=== PATIENT | female | born 1955 | race African-American/Black ===

== ENCOUNTER 2017-04-25 14:04 | Emergency (ER) | payer MEDICAID ==
[~2017-04-25] VITALS: Ht 167.6 cm; Wt 89.0 kg
[~2017-04-25 14:04] MED LIST: ALLO300T2 PO; AMLO5TAB4 PO; ASPI-1159 PO; CHOL100044 PO; INDO-53 PO; METF10002 PO; SIMV20TA6 PO
[2017-04-25] MEDS ORDERED: SODIUM CHLORIDE 0.9% 1,000 ML IV ONE ×2 (14:26)
[2017-04-25 14:56] LABS: BG BASE EXCESS -2.3 mmol/L (-2.0-2.0); BG CARBOXYHEMOGLOBIN 4.1 % (0.5-1.5); BG DEOXYHEMOGLOBIN 7.2 % (0.0-5.0); BG FRACTION INSPIRED OXYGEN 21; BG HCO3 ACT 21.4 mmol/L (22.0-26.0); BG METHEMOGLOBIN 0.2 % (0.0-1.5); BG OXYGEN SATURATION 92.5 % (92.0-98.5); BG OXYHEMOGLOBIN 88.5 % (94.0-97.0); BG PH 7.417 (7.350-7.450); BG PO2 61.3 mmHg (75.0-100.0); BG SAMPLE SITE LEFT RADIAL; BG TOTAL HEMOGLOBIN 14.1 g/dL (12.0-18.0); BG VENT MODE ROOM AIR
[2017-04-25 15:00] LABS: BASOPHILS % 0.4 % (0.0-2.0); EOSINOPHILS % 1.4 % (0.0-5.0); HEMATOCRIT. 39.4 % (36.0-48.0); HEMOGLOBIN. 13.3 g/dL (12.0-16.0); LYMPHOCYTES % 16.9 % (20.0-50.0); MEAN CORPUSCULAR HEMOGLOBIN 29.6 pg (28.0-32.0); MEAN CORPUSCULAR VOLUME 87.7 fL (81.0-99.0); MEAN PLATELET VOLUME 8.5 fl (7.4-10.4); MONOCYTES % 8.1 % (2.0-8.0); NEUTROPHILS % 73.2 % (40.0-76.0); PLATELET 528 x1000/uL (130-400); RED CELL DISTRIBUTION WIDTH 14.4 % (11.6-14.6)
[2017-04-25 15:07] LABS: CHLORIDE 97 mEq/L (98-107)
[2017-04-25 15:14] LABS: AMYLASE 75 IU/L (25-115); CARBON DIOXIDE 24 mEq/L (21-32)
[2017-04-25 15:16] LABS: BETA HYDROXYBUTYRATE 0.7 mMol/L (0.0-0.3)
[2017-04-25] MEDS ORDERED: INSULIN REGULAR (HUMULIN R) 300UNITS/3ML IV ONE (15:30)
[2017-04-25 16:29] LABS: CLARITY URINE TURBID (CLEAR); COLOR URINE DARK YELLOW (YELLOW); GLUCOSE URINE 3+ (NEGATIVE); KETONES URINE TRACE (NEGATIVE); LEUKOCYTE ESTERASE URINE 2+ (NEGATIVE); NITRITE URINE NEGATIVE (NEGATIVE); OCCULT BLOOD URINE 1+ (NEGATIVE); PROTEIN URINE 2+ (NEGATIVE); SPECIFIC GRAVITY URINE 1.031 (1.005-1.030)
[2017-04-25 17:37] VITALS: BP 104/60
== END 2017-04-25 17:48 | disposition home or self-care (01) ==
LOC: ER 14:27
DX: E11.65 Type 2 diabetes mellitus with hyperglycemia (principal); N39.0 Urinary tract infection, site not specified; E87.8 Other disorders of electrolyte and fluid balance, not elsewhere classified; E78.00 Pure hypercholesterolemia, unspecified; I10 Essential (primary) hypertension; F17.200 Nicotine dependence, unspecified, uncomplicated; Z79.82 Long term (current) use of aspirin; Z91.19 Patient's noncompliance with other medical treatment and regimen
CPT/HCPCS: 36415; 36600; 71010; 80053; 81001; 82010; 82150; 82375; 82805; 82962; 83690; 85025; 93005; 96361; 96374; 99285; J1815; J7030; Z7610

== ENCOUNTER 2017-04-30 20:57 | Emergency (ER) | payer MEDICAID ==
[~2017-04-30] VITALS: Ht 167.6 cm; Wt 105.0 kg
[2017-05-01 01:19] LABS: BASOPHILS % 0.7 % (0.0-2.0); EOSINOPHILS % 1.9 % (0.0-5.0); HEMOGLOBIN. 12.3 g/dL (12.0-16.0); LYMPHOCYTES % 18.2 % (20.0-50.0); MEAN CORPUSCULAR HEMOGLOBIN 29.6 pg (28.0-32.0); MEAN CORPUSCULAR VOLUME 86.9 fL (81.0-99.0); MEAN PLATELET VOLUME 8.4 fl (7.4-10.4); MONOCYTES % 10.6 % (2.0-8.0); NEUTROPHILS % 68.6 % (40.0-76.0); PLATELET 659 x1000/uL (130-400); RED BLOOD CELL COUNT 4.15 mill/uL (4.2-5.4)
[2017-05-01 01:20] LABS: CHLORIDE 101 mEq/L (98-107)
[2017-05-01] MEDS: FAMOTIDINE 20MG/2ML VIAL IV STA (01:20)
[2017-05-01] MEDS: METOCLOPRAMIDE HCL 10MG/2ML VIAL IV STA (01:20)
[2017-05-01 01:28] LABS: CARBON DIOXIDE 24 mEq/L (21-32)
[2017-05-01 01:35] LABS: COLOR URINE YELLOW (YELLOW); GLUCOSE URINE TRACE (NEGATIVE); KETONES URINE NEGATIVE (NEGATIVE); LEUKOCYTE ESTERASE URINE 2+ (NEGATIVE); NITRITE URINE NEGATIVE (NEGATIVE); OCCULT BLOOD URINE 2+ (NEGATIVE); PROTEIN URINE 1+ (NEGATIVE); SPECIFIC GRAVITY URINE 1.017 (1.005-1.030)
[2017-05-01 01:45] LABS: CLARITY URINE HAZY (CLEAR)
[2017-05-01] MEDS: SODIUM CHLORIDE 0.9% 1,000 ML IV ONE (02:09)
[2017-05-01] MEDS: MORPHINE SULFATE 4 MG/ML CPJ (NOT FOR IM USE) IV STA (03:04)
[2017-05-01 04:51] VITALS: BP 134/67
== END 2017-05-01 06:15 | disposition home or self-care (01) ==
LOC: ER 21:05
DX: K80.20 Calculus of gallbladder without cholecystitis without obstruction (principal); E11.9 Type 2 diabetes mellitus without complications; I10 Essential (primary) hypertension; F17.200 Nicotine dependence, unspecified, uncomplicated; Z79.82 Long term (current) use of aspirin
CPT/HCPCS: 36415; 71010; 76705; 80053; 81001; 83690; 84484; 85025; 93005; 96374; 96375; 99285; J2270; J2765; J3490; J7030

== ENCOUNTER 2021-03-22 19:37 | Emergency (ER) | payer MEDICARE, MEDICAID ==
[~2021-03-22] VITALS: Ht 167.6 cm; Wt 68.0 kg
[~2021-03-22 19:37] MED LIST changes: -ASPI-1159 PO; +ASPI-1497 PO; -INDO-53 PO; +INDO50CA99 PO; +METF-416 PO; -METF10002 PO; +SIMV-43 PO; -SIMV20TA6 PO
[2021-03-22] MEDS ORDERED: ACETAMINOPHEN 325MG TABLET PO ONE (20:00)
[2021-03-22] MEDS ORDERED: GABAPENTIN 100MG CAPSULE PO ONE (20:00)
[2021-03-22] MEDS ORDERED: MORPHINE SULFATE 4 MG/ML CPJ (NOT FOR IM USE) IV ONE (20:15)
[2021-03-22 22:01] LABS: BASOPHILS % 0.8 % (0.0-2.0); EOSINOPHILS % 3.1 % (0.0-5.0); HEMATOCRIT. 40.2 % (36.0-48.0); HEMOGLOBIN. 13.5 g/dL (12.0-16.0); LYMPHOCYTES % 18.7 % (20.0-50.0); MEAN CORPUSCULAR HEMOGLOBIN 21.8 pg (28.0-32.0); MEAN CORPUSCULAR VOLUME 65.2 fL (81.0-99.0); MEAN PLATELET VOLUME 8.1 fl (7.4-10.4); MONOCYTES % 9.5 % (2.0-8.0); NEUTROPHILS % 67.9 % (40.0-76.0); PLATELET 726 x1000/uL (130-400); RED BLOOD CELL COUNT 6.17 mill/uL (4.2-5.4); RED CELL DISTRIBUTION WIDTH 21.9 % (11.6-14.6)
[2021-03-22 22:04] LABS: CHLORIDE 106 mEq/L (98-107)
[2021-03-22 22:07] LABS: ETHANOL BLOOD < 10 mg/dL
[2021-03-22 22:15] VITALS: BP 184/94
[2021-03-22 22:35] LABS: PLATELET ESTIMATE INCREASED
[2021-03-22] MEDS ORDERED: LIDO700A15 TP (23:02)
[2021-03-22] MEDS ORDERED: GABA-529 MT (23:02)
[2021-03-22] MEDS ORDERED: T3 PO (23:02)
[2021-03-23] MEDS ORDERED: CIPR500T5 MT (23:32)
== END 2021-03-22 23:41 | disposition home or self-care (01) ==
LOC: ER 19:37
DX: G62.9 Polyneuropathy, unspecified (principal); E11.9 Type 2 diabetes mellitus without complications; I10 Essential (primary) hypertension; Z86.718 Personal history of other venous thrombosis and embolism; Z79.01 Long term (current) use of anticoagulants; Z79.82 Long term (current) use of aspirin; Z79.84 Long term (current) use of oral hypoglycemic drugs
CPT/HCPCS: 36415; 71045; 80053; 80320; 83880; 84484; 85025; 93005; 93970; 96374; 99285; J2270; G0480

== ENCOUNTER 2021-03-23 18:42 | Emergency (ER) | payer MEDICARE, MEDICAID ==
[~2021-03-23] VITALS: Ht 167.6 cm; Wt 57.0 kg
[~2021-03-23 18:42] MED LIST changes: +GABA-529 MT; +LIDO700A15 TP; +T3 PO
[2021-03-23 19:33] LABS: BASOPHILS % 0.6 % (0.0-2.0); HEMATOCRIT. 43.5 % (36.0-48.0); LYMPHOCYTES % 15.9 % (20.0-50.0); MEAN CORPUSCULAR HEMOGLOBIN 21.6 pg (28.0-32.0); MEAN PLATELET VOLUME 7.1 fl (7.4-10.4); MONOCYTES % 9.8 % (2.0-8.0); NEUTROPHILS % 71.7 % (40.0-76.0); PLATELET 654 x1000/uL (130-400); RED CELL DISTRIBUTION WIDTH 22.5 % (11.6-14.6)
[2021-03-23 19:40] LABS: CHLORIDE 108 mEq/L (98-107)
[2021-03-23] MEDS ORDERED: ACETAMINOPHEN 325MG TABLET PO ONE (19:45)
[2021-03-23] MEDS ORDERED: AZITHROMYCIN 500 MG TABLET PO ONE (21:45)
[2021-03-23] MEDS ORDERED: CIPR500T5 MT (23:32)
[2021-03-23 23:50] VITALS: BP 165/88
== END 2021-03-24 01:30 | disposition left against medical advice (07) ==
LOC: ER 18:42
DX: J18.9 Pneumonia, unspecified organism (principal); I10 Essential (primary) hypertension; E11.9 Type 2 diabetes mellitus without complications; Z79.82 Long term (current) use of aspirin; Z79.899 Other long term (current) drug therapy; Z20.822 Contact with and (suspected) exposure to COVID-19
CPT/HCPCS: 36415; 71045; 80053; 83880; 84484; 85025; 87426; 93005; 99282; 99285

== ENCOUNTER 2021-11-20 19:53 | Emergency (ER) | payer MEDICARE, MEDICAID ==
[~2021-11-20] VITALS: Ht 170.2 cm; Wt 71.0 kg
[~2021-11-20 19:53] MED LIST changes: -ASPI-1497 PO; +HYDR-4001 MT; -T3 PO
[2021-11-20 19:58] VITALS: BP 191/86
[2021-11-20 20:25] LABS: BASOPHILS % 0.6 % (0.0-2.0); EOSINOPHILS % 3.4 % (0.0-5.0); HEMATOCRIT. 44.9 % (36.0-48.0); HEMOGLOBIN. 14.6 g/dL (12.0-16.0); LYMPHOCYTES % 18.9 % (20.0-50.0); MEAN CORPUSCULAR HEMOGLOBIN 21.8 pg (28.0-32.0); MEAN CORPUSCULAR VOLUME 67.1 fL (81.0-99.0); MEAN PLATELET VOLUME 7.2 fl (7.4-10.4); MONOCYTES % 7.5 % (2.0-8.0); NEUTROPHILS % 69.6 % (40.0-76.0); PLATELET 589 x1000/uL (130-400); RED CELL DISTRIBUTION WIDTH 21.6 % (11.6-14.6)
[2021-11-20 20:40] LABS: CHLORIDE 107 mEq/L (98-107)
[2021-11-20 21:10] LABS: PLATELET ESTIMATE INCREASED
[2021-11-20] MEDS ORDERED: TRAMADOL 50MG TABLET PO ONE (23:00)
[2021-11-20] MEDS ORDERED: ACETAMINOPHEN 325MG TABLET PO ONE (23:00)
[2021-11-20] MEDS ORDERED: TRAM-529 MT ×2 (23:02)
[2021-11-21] MEDS ORDERED: TRAM-529 MT (15:47)
== END 2021-11-20 23:51 | disposition home or self-care (01) ==
LOC: ER 19:53
DX: G89.18 Other acute postprocedural pain (principal); Z90.49 Acquired absence of other specified parts of digestive tract
CPT/HCPCS: 36415; 76705; 80053; 85025; 99284

== ENCOUNTER 2022-05-25 20:29 | Emergency (ER) | payer MEDICAID, MEDICARE ==
[~2022-05-25] VITALS: Ht 165.1 cm; Wt 75.0 kg
[~2022-05-25 20:29] MED LIST changes: +TRAM-529 MT
[2022-05-25] MEDS ORDERED: GABAPENTIN 100MG CAPSULE PO ONE (22:30)
[2022-05-25] MEDS ORDERED: CAPS42.514 TP (22:32)
[2022-05-25] MEDS ORDERED: CAPSAICIN 0.075% CREAM 60GM TOP PRN (22:45)
[2022-05-25] MEDS ORDERED: GABAPENTIN 300MG CAPSULE PO NR (22:45)
[2022-05-26 00:01] LABS: BASOPHILS % 0.6 % (0.0-2.0); HEMATOCRIT. 45.7 % (36.0-48.0); HEMOGLOBIN. 15.2 g/dL (12.0-16.0); MEAN CORPUSCULAR HEMOGLOBIN 23.3 pg (28.0-32.0); MEAN CORPUSCULAR VOLUME 70.4 fL (81.0-99.0); MONOCYTES % 7.5 % (2.0-8.0); NEUTROPHILS % 72.9 % (40.0-76.0); PLATELET 564 x1000/uL (130-400); RED CELL DISTRIBUTION WIDTH 23.4 % (11.6-14.6)
[2022-05-26 00:06] LABS: CHLORIDE 108 mEq/L (98-107)
[2022-05-26 02:53] VITALS: BP 148/88
[2022-05-26 03:24] LABS: PLATELET ESTIMATE INCREASED
== END 2022-05-26 01:30 | disposition home or self-care (01) ==
LOC: ER 20:29
DX: B02.9 Zoster without complications (principal); D75.839 Thrombocytosis, unspecified; E11.9 Type 2 diabetes mellitus without complications; I10 Essential (primary) hypertension; Z90.49 Acquired absence of other specified parts of digestive tract; Z79.84 Long term (current) use of oral hypoglycemic drugs
CPT/HCPCS: 36415; 80053; 85025; 99283